=== PATIENT | female | born 1960 ===

== ENCOUNTER → 2017-12-23 | Outpatient (CLI) | payer OTHER | END | disposition home or self-care (01) | LOC: LAB 13:11 → LAB SHORT 13:11 | DX: L08.9 Local infection of the skin and subcutaneous tissue, unspecified (principal) | CPT/HCPCS: 87070; 87075; 87205 ==

== ENCOUNTER → 2019-07-02 | Outpatient (CLI) | payer OTHER | END | disposition home or self-care (01) | LOC: LAB EV 15:37 → LAB SHORT 15:37 | DX: L03.319 Cellulitis of trunk, unspecified (principal) | CPT/HCPCS: 87070; 87075; 87205 ==